=== PATIENT | female | born 1990 | race Two or more races ===

== ENCOUNTER 2017-03-20 14:16 | Emergency (ER) | payer SELFPAY ==
[~2017-03-20] VITALS: Ht 154.9 cm; Wt 59.0 kg
[2017-03-20 14:43] VITALS: BP 138/94
== END 2017-03-20 16:52 | disposition left against medical advice (07) ==
LOC: ER 14:16
DX: R51 Headache (principal); Z53.21 Procedure and treatment not carried out due to patient leaving prior to being seen by health care provider